=== PATIENT | male | born 1990 | race Hispanic/Latino ===

== ENCOUNTER 2019-07-14 09:57 | Emergency (ER) | payer BC ==
[2019-07-14] MEDS ORDERED: ONDANSETRON HCL 4 MG/2 ML VIAL ONE (10:32)
[2019-07-14] MEDS ORDERED: SODIUM CHLORIDE 0.9% 1000ML 1,000 ML IV ONE (10:32)
[2019-07-14] MEDS ORDERED: KETOROLAC TROMETHAMINE 30MG/ML ONE (10:32)
[2019-07-14 10:33] LABS: APPEARANCE,URINE CLEAR (CLEAR); BILIRUBIN,URINE NEGATIVE (NEGATIVE); COLOR,URINE YELLOW (YELLOW); GLUCOSE, URINE (UA) NEGATIVE (NEGATIVE); KETONES,URINE NEGATIVE (NEGATIVE); LEUKOCYTE ESTERASE ,URINE NEGATIVE (NEGATIVE); NITRATE,URINE NEGATIVE (NEGATIVE); OCCULT BLOOD,URINE TRACE-INTACT (NEGATIVE); PH,URINE 7.5 (5.0-8.0); PROTEIN,URINE NEGATIVE (NEGATIVE); UROBILINOGEN,URINE 0.2 mg/dL (0.2-1.0)
[2019-07-14 10:39] LABS: AMPHET/METH SCREEN,URINE NEGATIVE (NEGATIVE); BARBITURATE SCREEN, URINE NEGATIVE (NEGATIVE); BENZODIAZEPINES SCREEN,URINE POSITIVE (NEGATIVE); CANNABINOID SCREEN,URINE POSITIVE (NEGATIVE); COCAINE SCREEN,URINE NEGATIVE (NEGATIVE); OPIATE SCREEN,URINE NEGATIVE (NEGATIVE); PHENCYCLIDINE SCREEN,URINE NEGATIVE (NEGATIVE)
[2019-07-14 10:43] LABS: BACTERIA,URINE Few /HPF (None Seen); YEAST,URINE BUDDING Moderate /HPF (None Seen)
[2019-07-14 10:44] LABS: WBC,URINE None Seen /HPF (0-1)
[2019-07-14 10:51] LABS: CREATININE 1.1 mg/dL (0.5-1.5); POTASSIUM 3.7 mmol/L (3.5-5.1)
[2019-07-14 10:54] LABS: BASOPHILS % (AUTO) 0.6 % (0.0-5.0); EOSINOPHILS % (AUTO) 0.2 % (0.0-8.0); HEMATOCRIT 45.4 % (42-54); LYMPHOCYTES % (AUTO) 30.9 % (21.0-51.0); MEAN CORPUSCULAR HEMOGLOBIN 28.8 pg (27.0-33.0); MEAN CORPUSCULAR VOLUME 84.8 fL (79-99); MONOCYTES % (AUTO) 6.4 % (3.0-13.0); NEUTROPHILS % (AUTO) 61.9 % (40.0-77.0); PLATELET COUNT (AUTO) 358 K/uL (130-400); RED BLOOD CELL COUNT(AUTO) 5.35 MIL/uL (4.50-6.20); RED CELL DISTRIBUTION WIDTH 12.9 % (11.0-15.5); WHITE BLOOD COUNT (AUTO) 8.2 K/uL (4.8-10.8)
[2019-07-14 10:56] LABS: ALBUMIN 4.1 g/dL (3.5-5.0); BILIRUBIN,DIRECT 0.1 mg/dL (0.0-0.3); BILIRUBIN,TOTAL 0.2 mg/dL (0.2-1.0); TOTAL PROTEIN, SERUM 8.4 g/dL (6.0-8.3)
== END 2019-07-14 12:01 | disposition home or self-care (01) ==
LOC: EDH 09:57
DX: K52.9 Noninfective gastroenteritis and colitis, unspecified (principal); F12.10 Cannabis abuse, uncomplicated; F32.9 Major depressive disorder, single episode, unspecified; F43.9 Reaction to severe stress, unspecified; Z87.891 Personal history of nicotine dependence
CPT/HCPCS: 36415; 74021; 80048; 80076; 80305; 81001; 83690; 85025; 96361; 96374; 96375; 99285; J1885; J2405; J7030